=== PATIENT | male | born 1995 | race Caucasian/White ===

== ENCOUNTER 2023-04-04 16:29 | Inpatient (IN) | payer OTHER, SELFPAY ==
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
--- NOTE | ~2023-04-04 | US_ITS ---
EXAMINATION: US VENOUS ULTRASOUND WITH DOPPLER LOWER EXTREMITY, RIGHT CLINICAL INFORMATION: Right-sided cellulitis. Swelling and pain. COMPARISON: None available. TECHNIQUE: Ultrasound of the deep veins is performed from the hip to the calf with compression sonography and color and pulse Doppler assessment. Spectral analysis with color-flow imaging is performed. FINDINGS: There is normal venous compression and respiratory variation and augmented flow. The visualized common femoral vein, superficial femoral vein, profunda femoral vein, popliteal vein, and the trifurcation region shows no evidence of deep venous thrombosis. There is no significant popliteal fossa cyst. This right groin lymph nodes are noted measuring up to 3.9 cm in maximum size. If the patient's symptoms persist, followup ultrasound in 5 days 7 days might be of value to exclude proximal propagation from a non-visualized calf vein. US/US venous duplex LE RT IMPRESSION: 1. No DVT demonstrated in the right lower extremity. 2. Right groin lymph nodes measuring up to 3.9 cm in maximum dimension, likely reactive.
[2023-04-04 17:56] VITALS: BP 117/70; PULSE 91; RESP 18; TEMP 37.2; O2SAT 98; BMI 29.8
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
[2023-04-04 18:29] LABS: MANUAL DIFF FLAG NO
[2023-04-04 18:52] LABS: Anion Gap 13 (12-20); Blood Urea Nitrogen 12 mg/dL (9-16); Calcium 9.5 mg/dL (8.4-10.2); Carbon Dioxide 26 mmol/L (22-29); Chloride 105 mmol/L (96-108); Creatinine Clr Calc Pharmacy 125.6; Estimated Glomerular Filt Rate > 60; Glucose Random 102 mg/dL (60-115); Magnesium 2.2 mg/dL (1.6-2.6); Potassium 4.1 mmol/L (3.3-5.1); Sodium 140 mmol/L (135-145)
[2023-04-04 18:56] LABS: Basophils Absolute Auto 0.1 X10*3/uL (0.0-0.2); Basophils Percent Auto 0.4 % (0-2); Eosinophils Absolute Auto 0.2 X10*3/uL (0.0-0.4); Eosinophils Percent Auto 1.5 % (0-4); Hematocrit 46.9 % (42.0-52.0); Hemoglobin 15.7 g/dl (14.0-18.0); Imm Gran Abs Auto 0.13 X10*3/uL (0.00-0.03); Lymphocytes Absolute Auto 2.4 X10*3/uL (1.2-4.9); Lymphocytes Percent Auto 17.6 % (20-40); Mean Corpuscular HGB Conc 33.5 g/dl (31.0-36.0); Mean Corpuscular Volume 95.7 fL (80.0-98.0); Mean Platelet Volume 10.4 fL (9.4-12.4); Monocytes Absolute Auto 1.3 X10*3/uL (0.1-1.2); Monocytes Percent Auto 9.6 % (2-11); Neutrophils Absolute Auto 9.5 x10*3/uL (2.0-8.3); Neutrophils Percent Auto 69.9 % (45-73); Platelet Count 239 X10*3/uL (160-400); Red Cell Distribution Width 13.1 % (11.0-16.0); White Blood Count 13.6 X10*3/uL (4.8-10.8)
[2023-04-05] VITALS (10 sets, daily range): BP systolic 107–135; BP diastolic 56–76; PULSE 60–83; RESP 13–18; TEMP 36.3–38; O2SAT 97–100
[2023-04-05] MEDS: Piperacillin Sodium/Tazobactam 3.375 GM in 0.9 % Sodium Chloride 50 ML IV (00:32)
--- NOTE | 2023-04-05 00:33 | MHC.EDTECH ---
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
[2023-04-05] MEDS: 0.9 % Sodium Chloride 1,000 ML 999 ML IV (00:38)
[2023-04-05 00:39] LABS: Lactic Acid 0.8 mmol/L (0.5-2.0)
--- NOTE | 2023-04-05 00:42 | PC.NURSE ---
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 Area of concern peggy for monitoring increase redness and swelling.
--- NOTE | 2023-04-05 01:06 | MHC.EDTECH ---
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
--- NOTE | 2023-04-05 03:02 | PC.NURSE ---
Pt reports he babcock not take any medications.
--- OUTSIDE RECORDS SUMMARY | 2023-04-05 03:54 | XMS_ITS | Continuity of Care Document ---
Author Name Unknown Organization [facility] [address] Address [address] [place] [address]- Care Team Providers Care Sales Center Manager Name Role Phone Not on Staff, PCP Primary Care Physician Unavail able Encounter [facility] Date(s): 04/04/23 - 04/04/[address] [id number]- Discharge Disposition: A-D/C Walkout Attending Physician: Not on Staff, Attending MD Admitting Physician: Not on Staff, Admitting MD Referring Physician: Not on Staff, Referring MD Allergies, Adverse Reactions, Alerts No Known Allergies Vital Signs Most recent to oldest [Reference Range]: 1 Height 168 cm (04/04/23 2:34 PM) Oxygen Saturation [94-100 %] 100 % (04/04/23 2:34 PM) Pulse Rate [55-90 bpm] 108 bpm *H* (04/04/23 2:34 PM) Blood Pressure [90-138/55-84 mm Hg] 141/ 82mm Hg *H* (04/04/23 2:34 PM) Respiratory Rate [16-30 br/min] 16 br/mi n (04/04/23 2:34 PM) Temperature [96.8-100.4 DegF] 99.1 DegF (04/04/23 2:34 PM) Mode of Delivery (Oxygen) Room air (04/04/23 2:34 PM) Blood pressure sites Arm, right (04/04/23 2:34 PM) Temperature Route Oral (04/04/23 2:34 PM) Dry Weight 81.8 kg (04/04/23 2:34 PM) Patient Care team information Care Team Personnel Name: Not on Staff, PCP Position: [facility] Physician (General Medicine) Member Role: PCP
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
[2023-04-05] MEDS: vancomycin/NS 2,000 MG/500 ML PLAST..BAG 250 MG IV (05:41)
--- NOTE | 2023-04-05 05:44 | PC.NURSE ---
pt medicated per mar.
[2023-04-05 05:54] LABS: Basophils Percent Auto 0.3 % (0-2); Eosinophils Absolute Auto 0.3 X10*3/uL (0.0-0.4); Eosinophils Percent Auto 2.1 % (0-4); Hematocrit 42.9 % (42.0-52.0); Hemoglobin 14.3 g/dl (14.0-18.0); Imm Gran Abs Auto 0.06 X10*3/uL (0.00-0.03); Imm Gran Pct Auto 0.5 % (0.0-0.4); Lymphocytes Absolute Auto 2.8 X10*3/uL (1.2-4.9); Lymphocytes Percent Auto 21.5 % (20-40); MANUAL DIFF FLAG SCAN; Mean Corpuscular HGB Conc 33.3 g/dl (31.0-36.0); Mean Corpuscular Hemoglobin 32.1 pg (27.0-33.0); Mean Corpuscular Volume 96.2 fL (80.0-98.0); Mean Platelet Volume 10.1 fL (9.4-12.4); Monocytes Absolute Auto 1.7 X10*3/uL (0.1-1.2); Monocytes Percent Auto 12.6 % (2-11); Neutrophils Absolute Auto 8.3 x10*3/uL (2.0-8.3); Platelet Count 216 X10*3/uL (160-400); Red Blood Count 4.46 X10*6/uL (4.60-5.80); Red Cell Distribution Width 13.2 % (11.0-16.0); SCAN SMEAR FLAG 1; White Blood Count 13.1 X10*3/uL (4.8-10.8)
[2023-04-05 06:12] LABS: SLIDE REVIEW VERIFIED
--- NOTE | 2023-04-05 08:38 | PHA.MEDREC ---
Pharmacy Consult ? Medication Reconciliation Pharmacy has completed the medication reconciliation.
--- NOTE | 2023-04-05 09:21 | MHC.CM.PN ---
CM met with patient at bedside, with tool maintenance technician assisting. Patient is from home with and son. Functionally independent. No services or medical equipment. No PCP or HCP. CM provided education and offered assistance. Patient declines at this time. DP: Do not anticipate the need for services. Return home, self care, to transport. CM will continue to follow for dc needs.
[2023-04-05 10:51] LABS: Creatinine Clr Calc Pharmacy 139.9; Estimated Glomerular Filt Rate > 60
--- NOTE | 2023-04-05 13:18 | PHA.PROG ---
Admission Date/Time: April 05, 2023 03:47 Indication: SKIN Weight in k.79 kg Adjusted body weight in Kg: [place] body weight in Kg: Obesity Dosing Indication % IBW: Serum Creatinine - Last 168 Hours 04/04/23 04/05/23 18:24 10:01 Creatinine 1.08 0.97 Estimated CrCl and GFR - Last 168 Hours 04/04/23 04/05/23 18:24 10:01 Estim Creat Clear Calc 125.6 139.9 Estimated GFR > 60 > 60 Vancomycin Loading Dose: 2000 MG Current Vancomycin Dosing Regimen: 1250 MG Q12H Vancomycin Monitoring using AUC goal of 400 - 600 range with trough as surrogate marker: 461 MG/L HR Date and Time for next Vancomycin Level to be drawn: 04/06/23 @1600 Pharmacist Comments on Vancomycin Plan: Based on indication, sCr of 0.97 and predicted AUC of 461, starting patient on 1250 mg q12h at 1800 on 04/05/23. Random is scheduled for 04/06/23 @1600. Vancomycin dosing will take advantage of ONOFFMIX (?) as a clinical decision support tool that uses Bayesian modeling to calculate individual patient's pharmacokinetic parameters and forecast the patient's drug concentration time course with the target goal AUC 24 range of 400 - 600 mg/L/hr.
[2023-04-05] MEDS: 0.9 % Sodium Chloride Flush 3 ML SYRINGE IVFLUSH ×2 (15:11→23:53)
--- NOTE | 2023-04-05 16:22 | P.PNIM_ITS ---
Subjective Subjective Date of Service: 04/05/23 Interval History: right leg cellulitis Review of Systems leg erythema and pain improving no fever or abd pain Physical Exam 2 Vital Signs: Vital Signs: Last Vital Signs Temp 97.7 F 04/05/23 15:39 Pulse 60 04/05/23 15:39 Resp 16 04/05/23 15:39 BP 116/60 04/05/23 15:39 Pulse Ox 98 04/05/23 15:39 O2 Del Method Room Air 04/05/23 15:39 BMI result Body Mass Index 29.8 Appearance: Alert.? Oriented X3. cvs: rrr, [id number] . res: clear to auscultation ,no rhonchii or wheezing abd: no rebound or guarding ,nt, bs present. ext pulses present , no cyanosis right lower leg erythema, no discharge. neuro: axo3 , nonfocal. Objective Data Active Medications Acetaminophen (Acetaminophen 325 Mg Tablet) 650 mg PO Q6H PRN PRN Reason: Pain, Mild (Pain Scale 1-3) Al Hydroxide/Mg Hydroxide (Magnesium Hydrox/Alum Hydrox 30 Ml Oral.Susp) 30 ml PO Q4H PRN PRN Reason: Heartburn/Nausea Enoxaparin Sodium (Enoxaparin Sodium 40 Mg/0.4 Ml Syringe) 40 mg SUBCUT Q24H [facility] Last Admin: 04/05/23 12:24 Dose: Not Given Documented By: DASHAWN Non-Admin Reason: Patient Refused Vancomycin HCl 1,250 mg/ (Sodium Chloride) 250 mls @ 166.667 mls/hr IV Q12H [facility] Melatonin (Melatonin 3 Mg Tablet) 6 mg PO BEDTIME PRN PRN Reason: Insomnia Ondansetron HCl (Ondansetron Hcl 4 Mg/2 Ml Vial) 4 mg IVPUSH Q8H PRN PRN Reason: Nausea and Vomiting Pharmacy Consult (Consult Rx Vancomycin Dosing) 1 each MISCELLANE DAILY PRN PRN Reason: Consult order Senna (Sennosides 8.6 Mg Tablet) 17.2 mg PO BEDTIME PRN PRN Reason: Constipation Sodium Chloride (0.9 % Sodium Chloride Flush 3 Ml Syringe) 3 ml IVFLUSH QSHIFT [facility] Last Admin: 04/05/23 15:11 Dose: 3 ml Documented By: FERNANDO Labs 04/05/23 05:36 04/05/23 10:01 Labs: Laboratory Results - last 24 hr 04/04/23 04/05/23 04/05/23 18:24 00:20 05:36 MCV 95.7 96.2 MCH 32.0 32.1 MCHC 33.5 33.3 RDW 13.1 13.2 Plt Count 239 216 MPV 10.4 10.1 Immature Gran % (Auto) 1.0 H 0.5 H Neut % (Auto) 69.9 63.0 Lymph % (Auto) 17.6 L 21.5 [place] % (Auto) 9.6 12.6 H Eos % (Auto) 1.5 2.1 Baso % (Auto) 0.4 0.3 Lymph # (Auto) 2.4 2.8 [place] # (Auto) 1.3 H 1.7 H Eos # (Auto) 0.2 0.3 Baso # (Auto) 0.1 0.0 Abs Immat Gran (auto) 0.13 H 0.06 H Absolute Neuts (auto) 9.5 H 8.3 Absolute Nucleated RBC 0.000 0.000 Nucleated RBC % (auto) 0.0 0.0 Smear Tech's Comments VERIFIED Hold Purple Top Anion Gap 13 Estim Creat Clear Calc 125.6 Estimated GFR > 60 Random Glucose 102 Lactic Acid 0.8 Calcium 9.5 Magnesium 2.2 04/05/23 10:01 MCV MCH MCHC RDW Plt Count MPV Immature Gran % (Auto) Neut % (Auto) Lymph % (Auto) [place] % (Auto) Eos % (Auto) Baso % (Auto) Lymph # (Auto) [place] # (Auto) Eos # (Auto) Baso # (Auto) Abs Immat Gran (auto) Absolute Neuts (auto) Absolute Nucleated RBC Nucleated RBC % (auto) Smear Tech's Comments Hold Purple Top SEE NOTE Anion Gap Estim Creat Clear Calc 139.9 Estimated GFR > 60 Random Glucose Lactic Acid Calcium Magnesium Assessment and Plan (1) Cellulitis of leg, right: Status: Acute Plan 27 year old male with no significant medical history here with: 1. Cellulitis of the right leg no improving yet -seems similar to yesterday continue IV antibiotics. 2. Sepsis- meets criteria for sepsis but is hemodynamically stable - has normal lactic acid and normal BP - treat as above with IV antibiotics 3. Smoker - smokes 1 PPD and is not motivated to quit - encourage smoking cessation ongoing hospitlisation need :Cellulitis/sepsis of the right leg-not improving, need iv antibiotics ,blood cultures pending -in my opnion will benefit for 48 hrs stay . Quality Stroke Does the patient have a stroke diagnosis?: No VTE Prior VTE?: No VTE Risk Level:: Medical - moderate - high VTE Device Contraindication: Treatment Not Indicated VTE Drug Contraindication: N/A - Med Ordered
[2023-04-05] MEDS: vancomycin HCL 1,250 MG in 0.9 % Sodium Chloride 250 ML 166.67 MG IV (17:59)
[2023-04-06 03:06] VITALS: BP 113/53; PULSE 60; RESP 18; TEMP 36.2; O2SAT 97
[2023-04-06] MEDS: vancomycin HCL 1,250 MG in 0.9 % Sodium Chloride 250 ML 166.67 MG IV (06:07)
[2023-04-06 07:28] VITALS: BP 122/56; PULSE 61; RESP 16; TEMP 36.1; O2SAT 99
[2023-04-06] MEDS: Enoxaparin Sodium 40 MG/0.4 ML SYRINGE SUBCUT (08:42)
[2023-04-06] MEDS: 0.9 % Sodium Chloride Flush 3 ML SYRINGE IVFLUSH (08:42)
[2023-04-06 10:17] LABS: Creatinine Clr Calc Pharmacy 144.3; Estimated Glomerular Filt Rate > 60
--- NOTE | 2023-04-06 10:22 | MHC.CM.PN ---
EMR REVIEWED. PER MD ROUNDS PATIENT CLEARED FOR DC HOME, SELF CARE. WILL TRANSPORT AROUND NOON. RN AWARE.
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
[2023-04-06] MEDS: Amoxicillin/Potassium Clav 875 MG TABLET PO (13:02)
[2023-04-06] MEDS: Doxycycline Monohydrate 100 MG CAPSULE PO (13:02)
== END 2023-04-06 13:05 | disposition home or self-care (01) | DRG 720 ==
LOC: HO.ED 04-05 01:34 → HO.EDOVER 04-05 03:53 → HO.S3 04-05 07:29
PROVIDERS: Physician Assistant Medical; Admitting Provider Internal Medicine; Emergency Provider Emergency Medicine; Visit Provider Internal Medicine
DX: A41.9 Sepsis, unspecified organism (principal); L03.115 Cellulitis of right lower limb; F17.210 Nicotine dependence, cigarettes, uncomplicated; Z71.6 Tobacco abuse counseling; F12.10 Cannabis abuse, uncomplicated
CPT/HCPCS: 36415; 73590; 80048; 82565; 83605; 83735; 85025; 87040; 93971; 99285; J1650; J2543; J3370; J3371

== ENCOUNTER → 2023-04-05 03:47 | Outpatient (BNV) | payer OTHER, SELFPAY | PROVIDERS: Admitting Provider Internal Medicine; Emergency Provider Emergency Medicine; Visit Provider Internal Medicine | DX: L03.115 Cellulitis of right lower limb (principal); R65.10 Systemic inflammatory response syndrome (SIRS) of non-infectious origin without acute organ dysfunction; F12.10 Cannabis abuse, uncomplicated; F17.200 Nicotine dependence, unspecified, uncomplicated | CPT/HCPCS: 99223; 99239; 99499 ==